=== PATIENT | male | born 1980 | race Caucasian/White ===

== ENCOUNTER 2017-01-24 00:34 | Emergency (ER) | payer OTHER ==
[~2017-01-24] VITALS: Ht 157.5 cm; Wt 58.2 kg
[~2017-01-24 00:34] MED LIST: ALBUTEROL SULF8.5 GM IH; CLEOCIN HCL300 MG PO; COLACE100 MG PO; Cipro PO; Flagyl PO; Imodium PO; LORTAB 7.5/51 TABLET PO; MOBIC15 MG PO; NOHOMEMEDS; NORCO 5/3251 TABLET PO; NORCO 7.5/321 TABLET PO; OXYCODONE5 MG PO; PREPARATION H26 GM; PROCTOSOL-HC28.35 GM; Phenergan PO; TAMIFLU75 MG PO; TYLENOL REGULA325 MG PO; VALIUM5 MG PO; VIGAMOX 0.60 DROP/3 RIGHT EYE; ZITHROMAX Z-PA250 MG PO
[2017-01-24 01:13] LABS: HEMATOCRIT 41.4 % (38.0-50.0); MCHC 35.3 G/DL (30.0-36.0); MCV 79.5 FL (86-99); PLATELET COUNT 249 K/uL (156-360); RBC DIS.WIDTH-CV 12.4 % (11.8-14.6); RBC DIS.WIDTH-SD 35.2 % (39-53); RED BLOOD COUNT 5.21 M/uL (4.00-5.50); WHITE BLOOD COUNT 6.1 K/uL (4.1-10.2)
[2017-01-24 01:25] LABS: CHLORIDE 106 mEq/L (99-109); POTASSIUM 4.1 mEq/L (3.7-5.4); SODIUM 141 mEq/L (136-147)
[2017-01-24 01:27] LABS: GLUCOSE 114 mg/dL (70-99)
[2017-01-24 01:28] LABS: ANION GAP 9 MEQ/L (2-14)
[2017-01-24 01:31] LABS: GFR ESTIMATE (CALCULATED) > 59 mL/min/
[2017-01-24 01:32] LABS: UREA NITROGEN (BUN) 11 mg/dL (9-23)
[2017-01-24 01:34] LABS: TROP-I INTERPRETATION NEGATIVE; TROPONIN-I < 0.01 ng/mL (0.0-0.30)
[2017-01-24 02:04] VITALS: BP 116/74
== END 2017-01-24 02:04 | disposition home or self-care (01) ==
LOC: EME 00:34
DX: R07.9 Chest pain, unspecified (principal); M79.602 Pain in left arm; Z87.442 Personal history of urinary calculi
CPT/HCPCS: 71020; 80048; 84484; 85027; 93005; 99281; 99284

== ENCOUNTER 2017-11-30 22:24 | Emergency (ER) | payer OTHER ==
[~2017-11-30] VITALS: Ht 157.5 cm; Wt 58.0 kg
[2017-11-30 23:17] LABS: APPEARANCE SL.HAZY ((CLEAR)); BILIRUBIN NEGATIVE; BLOOD NEGATIVE; COLOR YELLOW ((YELLOW)); GLUCOSE (STRIP) NEGATIVE; KETONES 20; LEUKOCYTES NEGATIVE; NITRITE NEGATIVE; PROTEIN (STRIP) NEGATIVE; SPECIFIC GRAVITY 1.019 (1.000-1.030); UROBILINOGEN 0.2 MG/DL (0.2-1.0)
[2017-11-30 23:19] LABS: BACTERIA RARE /HPF; EPITHELIAL CELLS RARE /HPF; MUCUS TRACE /LPF; RED BLOOD CELLS 0-5 /HPF (0-5); UCUL ADDED? NO; WHITE BLOOD CELLS 0-5 /HPF (0-5)
[2017-11-30 23:20] LABS: HEMATOCRIT 41.8 % (38.0-50.0); MCH 28.8 PG (29.0-34.0); MCHC 35.9 G/DL (30.0-36.0); MCV 80.4 FL (86-99); PLATELET COUNT 178 K/uL (156-360); RBC DIS.WIDTH-CV 12.3 % (11.8-14.6); RBC DIS.WIDTH-SD 35.3 % (39-53); WHITE BLOOD COUNT 7.9 K/uL (4.1-10.2)
[2017-11-30 23:31] LABS: ALBUMIN 4.3 g/dL (3.2-4.8)
[2017-11-30 23:32] LABS: CHLORIDE 103 mEq/L (99-109); POTASSIUM 3.9 mEq/L (3.7-5.4); SODIUM 136 mEq/L (136-147)
[2017-11-30 23:34] LABS: GLUCOSE 100 mg/dL (70-99); TOTAL PROTEIN 7.4 g/dL (6.4-8.3)
[2017-11-30 23:36] LABS: TOTAL BILIRUBIN 1.1 mg/dL (0.0-1.0)
[2017-11-30 23:37] LABS: ALKALINE PHOSPHATASE 47 IU/L (3-129)
[2017-11-30 23:38] LABS: CREATININE 0.8 mg/dL (0.6-1.3); GFR ESTIMATE (CALCULATED) > 59 mL/min/ (58.99-99999)
[2017-11-30 23:39] LABS: AST (GOT) 19 IU/L (2-34); UREA NITROGEN (BUN) 10 mg/dL (9-23)
[2017-11-30 23:41] LABS: ALT (GPT) 20 IU/L (3-49); LIPASE 15 U/L (1.0-51.0)
[2017-12-01 04:16] VITALS: BP 99/62
== END 2017-12-01 04:16 | disposition home or self-care (01) ==
LOC: EME 22:24
PROVIDERS: Physician Assistant
DX: J10.1 Influenza due to other identified influenza virus with other respiratory manifestations (principal); J10.2 Influenza due to other identified influenza virus with gastrointestinal manifestations; R55 Syncope and collapse; Z87.442 Personal history of urinary calculi; Z87.19 Personal history of other diseases of the digestive system; Z88.6 Allergy status to analgesic agent
CPT/HCPCS: 80053; 81003; 83690; 85027; 87502; 99281; 99284; J7030